=== PATIENT | male | born 1980 | race Caucasian/White ===

== ENCOUNTER 2020-06-23 04:26 | Emergency (ER) | payer OTHER, SELFPAY ==
[2020-06-23] VITALS (7 sets, daily range): BP systolic 108–125; BP diastolic 61–77; PULSE 83–89; RESP 9–16; TEMP 36.5; O2SAT 99; BMI 24.3
--- NOTE | 2020-06-23 04:35 | ED_ITS ---
HPI - Arrhythmia/Palpitations General Chief Complaint: Arrhythmia/Palpitations Stated Complaint: Afib Time Seen by Provider: 06/23/20 04:26 Source: patient Mode of arrival: EMS Limitations: no limitations History of Present Illness HPI narrative: Patient is an otherwise healthy 39-year-old male here for evaluation of palpitations and passing out. Patient states that he is in the local area traveling. He states that he went to bed last night feeling fine and woke up early this morning feel like his heart was beating fast. He is unsure whether not it started after he woke up or if the symptoms woke him up. He states that he was not having any chest pain was feeling somewhat lightheaded. He drank some water that when he stood up to go to the bathroom he became lightheaded and passed out. He states he was somewhat confused afterwards. No injuries from passing out. He contacted his who was not with him in the local area because he states that he was somewhat confused. He called EMS. Upon their arrival he was found to be in atrial fibrillation with a heart rate in the 130s. In route to the emergency department without any intervention converted to sinus rhythm. Patient states that his father has a history of atrial fibrillation and needed a ablation. He states that the time of evaluat ion he is feeling much better. Expressed that he did drink some alcohol last evening but no other drugs. He states that he potentially has had issues like this in the past but has never been seen for them as they all are self-limiting. Review of Systems Constitutional Constitutional: Denies chills, Denies fever(s) and Denies lethargy ENT Ears, Nose, Mouth, and Throat: Denies vertigo and Denies dizziness Cardiovascular Cardiovascular: Denies chest pain, Reports syncope, Reports rapid heart rate and Denies dyspnea Respiratory Respiratory: Denies cough and Denies dyspnea Gastrointestinal Gastrointestinal: Denies abdominal pain, Denies nausea and Denies vomiting Musculoskeletal Musculoskeletal: Denies myalgias Integumentary/Breasts Skin/Breast: Denies lesions and Denies rash Neurologic Neurologic: Denies vertigo, Denies dizziness and Reports syncope Hematologic/Lymphatic Hematologic/Lymphatic: Denies easy bleeding and Denies easy bruising Allergic/Immunologic Allergic/Immunologic: Denies urticaria Patient History Medical History Healthy adult (Acute) Social History Smoking Status: Never smoker Exam Initial Vital Signs Initial Vital Signs: Vital Signs Temperature 97.7 F 06/23/20 04:32 Pulse Rate 85 06/23/20 04:32 Respiratory Rate 16 06/23/20 04:32 Blood Pressure 124/77 06/23/20 04:32 Pulse Oximetry 99 06/23/20 04:32 Const General: cooperative, healthy appearing, comfortable and well developed Limitations: mental status not altered HENMT Head: normal to inspection and normocephalic Resp Effort & Inspection: normal respiratory effort Auscultation: clear to auscultation bilaterally Cardio Rate: regular rate Rhythm: regular rhythm GI Inspection: non-distended Palpation: soft Skin Lesions: no lesions Rashes: no rashes Neuro General: patient alert, patient awake and patient oriented x3 Cognition: normal cognition Speech: speech normal Extrem General: normal to inspection and capillary refill normal Psych Appearance: grossly normal and well kempt Course Orders Ordered: ED Orders 06/23/20 04:27 EKG-12 Lead Stat 06/23/20 04:50 Complete Blood Count AUTO DIFF Stat Comprehensive Metabolic Panel Stat Lipase Stat Vital Signs Vital signs: Vital Signs - 8 hr 06/23/20 04:32 Temperature 97.7 F Pulse Rate 85 Respiratory Rate 16 Blood Pressure 124/77 Pulse Oximetry 99 MDM - Arrhythmia/Palpitations Lab Data Attestation: I reviewed the patient's lab results. Result diagrams: 06/23/20 04:50 06/23/20 04:50 Labs: Lab Results 06/23/20 06/23/20 Range/Units 04:50 04:50 WBC 7.4 (4.5-11.0) X10^3/uL RBC 4.57 (4.5-5.9) X10^6/uL Hgb 13.8 (13.5-17.5) g/dL Hct 40.4 L (41-53) % MCV 88.4 (80-100) fL MCH 30.1 (26-34) PG MCHC 34.0 (30-36) % RDW 12.7 (11.6-14.8) % Plt Count 191 (150-400) X10^3/uL Neut % (Auto) 72.5 (50-75) % Lymph % (Auto) 19.8 L (25-40) % Marion % (Auto) 5.9 (3-14) % Eos % (Auto) 1.2 L (2-4) % Baso % (Auto) 0.6 (0-2) % Neut # (Auto) 5400 (9810-4160) /uL Lymph # (Auto) 1500 (9014-2456) /uL Marion # (Auto) 400 (0-900) /uL Eos # (Auto) 100 (0-450) /uL Baso # (Auto) 0 (0-100) /uL Sodium 139 (137-145) mmol/L Potassium 3.4 (3.4-5.1) mmol/L Chloride 107 (98-107) mmol/L Carbon Dioxide 28 (22-32) mmol/L BUN 13 (9-20) mg/dL Creatinine 0.71 (0.66-1.25) mg/dL Estimated GFR > 60.0 (>60) mL/min BUN/Creatinine Ratio 18.3 (6-22) Glucose 123 H (70-100) mg/dL Calcium 8.9 (8.4-10.2) mg/dL Total Bilirubin 0.3 (0.2-1.3) mg/dL AST 22 (17-59) IU/L ALT 16 (<50) IU/L Alkaline Phosphatase 46 (38-126) U/L Total Protein 7.1 (6.3-8.2) g/dL Albumin 4.3 (3.5-5.0) g/dL Globulin 2.8 (1.7-4.1) g/dL Albumin/Globulin Ratio 1.5 (1.0-2.8) Lipase 64 (23-300) U/L ECG Data Attestation: I personally reviewed and interpreted this ECG as follows: Prior ECG tracings: not available for review Interpretation: Sinus rhythm Ventricular rate 81 Normal axis Normal QRS Normal QTC No ST T wave changes MDM Narrative Medical decision making narrative: Review of the EKGs provided by paramedics to show the patient with atrial fibrillation with a heart rate in the 130s. Here in the emergency department is in sinus rhythm. His electrolytes are unremarkable. He has a normal exam and is asymptomatic at the time my exam. Had a discussion with this regarding the patient. I feel we can hold on further workup for now. With the patient contact his primary provider when he returns home for an echocardiogram and a Holter monitor. He was given return precautions. He expressed understanding and agreement. Discharge Plan Departure Patient Disposition: Home Clinical Impression: Atrial fibrillation Qualifiers: Atrial fibrillation type: paroxysmal Qualified Code(s): I48.0 - Paroxysmal atrial fibrillation Instructions: DI for Atrial Fibrillation Activity Restrictions/Additional Instructions: I do recommend that when you return home you contact your primary provider to discuss further workup to include a Holter monitor and a echocardiogram. You have no restrictions on your activities. If your symptoms worsen or return to you develop any new symptoms please return to the emergency department for f urther evaluation.
[2020-06-23 04:57] LABS: Add Manual Diff / Slide Review NO; Basophils Absolute Auto 0 /uL (0-100); Basophils Percent Auto 0.6 % (0-2); Eosinophils Absolute Auto 100 /uL (0-450); Eosinophils Percent Auto 1.2 % (2-4); Hematocrit 40.4 % (41-53); Hemoglobin 13.8 g/dL (13.5-17.5); Lymphocytes Absolute Auto 1500 /uL (1100-4500); Lymphocytes Percent Auto 19.8 % (25-40); Mean Corpuscular Hemoglobin 30.1 PG (26-34); Mean Corpuscular Volume 88.4 fL (80-100); Monocytes Absolute Auto 400 /uL (0-900); Monocytes Percent Auto 5.9 % (3-14); Neutrophils Absolute Auto 5400 /uL (1500-7000); Neutrophils Percent Auto 72.5 % (50-75); Platelet Count 191 X10^3/uL (150-400); Red Blood Cell Count 4.57 X10^6/uL (4.5-5.9); Red Cell Distribution Width 12.7 % (11.6-14.8); White Blood Cell Count 7.4 X10^3/uL (4.5-11.0)
[2020-06-23 05:06] LABS: Alanine Aminotransferase 16 IU/L (<50); Albumin 4.3 g/dL (3.5-5.0); Albumin Globulin Ratio 1.5 (1.0-2.8); Alkaline Phosphatase 46 U/L (38-126); Aspartate Aminotransferase 22 IU/L (17-59); BUN Creatinine Ratio 18.3 (6-22); Bilirubin Total 0.3 mg/dL (0.2-1.3); Blood Urea Nitrogen 13 mg/dL (9-20); Calcium 8.9 mg/dL (8.4-10.2); Carbon Dioxide 28 mmol/L (22-32); Chloride 107 mmol/L (98-107); Estimated Glomerular Filt Rate > 60.0 mL/min (>60); Globulin 2.8 g/dL (1.7-4.1); Glucose 123 mg/dL (70-100); HEMOLYSIS < 15 (0-50); Lipase 64 U/L (23-300); Potassium 3.4 mmol/L (3.4-5.1); Sodium 139 mmol/L (137-145); Total Protein 7.1 g/dL (6.3-8.2)
== END 2020-06-23 07:28 | disposition home or self-care (01) ==
PROVIDERS: Emergency Provider Emergency Medicine
DX: I48.0 Paroxysmal atrial fibrillation (principal)
CPT/HCPCS: 36415; 80053; 83690; 85025; 93005; 99283; 99284